=== PATIENT | female | born 2000 | race African-American/Black ===

== ENCOUNTER 2018-03-24 16:17 | Emergency (ER) | payer MEDICAID ==
--- NOTE | 2018-03-24 16:52 | EDPHY ---
HPI/HX/ROS/PE/MDM Narrative: CHIEF COMPLAINT: Referred from [facility] for "firm leg" HPI: The patient is a 17 y/o female arriving from [facility] for evaluation of a "firm" right lower leg. She tripped and fell while running and abraded her right knee on Saturday, 2 days ago. She went to [facility] today for evaluation of her injury and they "noticed this leg was firmer than this one" referencing her right lower leg, so they referred her to the ED due to concern for a blood clot. The patient denies any pain in either calf, noticeable swelling, chest pain, or shortness of breath. She is not on oral control pills and has no personal history of blood clots, though her father has had a blood clot. REVIEW OF SYSTEMS: A comprehensive 10 system review of systems is otherwise negative aside from elements mentioned in the history of present illness. PMH: Denies SOCIAL HISTORY: [employer] student. Lives in [place]. PHYSICAL EXAM: General:Patient is alert, in no acute distress. ENT:Eyes are normal to inspection. ENT inspection normal. Neck: Normal inspection. Full range of motion. Respiratory:No respiratory distress. Breath sounds normal bilaterally. Cardiovascular: Regular rate and rhythm. Strong peripheral pulses. Normal cap refill. Abdomen:The abdomen is nontender to palpation. There are no peritoneal signs. Back: Normal to inspection. No tenderness to palpation. Skin: Normal color. No rash. Warm and dry. Extremities: Bandaged abrasion to right knee, otherwise normal appearance. Full range of motion. Neuro: Oriented x3. Normal motor function. Normal sensory function. ED Course: This is a healthy 17 y/o female who presents requesting an ultrasound of her right leg at the recommendation [facility] due to increased "firmness " in this leg following an abrasion to her right knee 2 days ago. Apart from abrasion, no notable swelling, tenderness, difference in calf diameter, or other findings. She has a low pretest probability for DVT; however, is now concerned about a blood clot due to the clinic's recommendation and would like to proceed with an US of her leg to be sure. I have ordered this. US is negative for DVT. Reassessed patient and discussed findings. She is comfortable with plan for discharge home with standard wound care instructions. Return precautions discussed. General Time Seen by Provider: 03/24/18 16:26 Initial Vital Signs: Initial Vital Signs Temperature (C) 36.6 C 03/24/18 16:24 Heart Rate 48 L 03/24/18 16:24 Respiratory Rate 18 03/24/18 16:24 Blood Pressure 124/53 H 03/24/18 16:24 O2 Sat (%) 96 03/24/18 16:24 O2 Delivery Mode Room Air Allergies/Adverse Reactions: No Known Allergies Allergy (Unverified 03/24/18 16:24) Home Medications: Medication Instructions Recorded NK [No Known Home Meds] 03/24/18 Departure - Departure Disposition: Home, Routine, Self-Care Clinical Impression: Abrasion of right knee Qualifiers: Encounter type: initial encounter Qualified Code(s): S80.211A - Abrasion, right knee, initial encounter Condition: Good Instructions: Abrasion (ED), Acute Wounds (ED) Additional Instructions: Keep wound clean and dry until healed. Follow up with your primary care provider as needed. Return to the ED for severe pain, chest pain, shortness of breath, or other worsening of condition. Referrals: [facility] [Clinic] - As per Instructions Report Scribed for: Basim Yanes Report Scribed by: Beronica Griffiths Date of Report: 03/24/18 Time of Report: 16:52 Physician Review and Approval Statement: Portions of this note were transcribed by an ED scribe. I personally performed the history, physical exam, and medical decision making; and confirm the accuracy of the information in the transcribed note.
[2018-03-24 17:25] VITALS: BP 137/53
[2018-03-24] MEDS ORDERED: LET GEL TOPICAL 1 EA SYR TP ONE (17:32)
== END 2018-03-24 18:03 | disposition home or self-care (01) ==
DX: S80.211A Abrasion, right knee, initial encounter (principal); W01.0XXA Fall on same level from slipping, tripping and stumbling without subsequent striking against object, initial encounter; Y92.9 Unspecified place or not applicable; Y93.9 Activity, unspecified; Y99.9 Unspecified external cause status